=== PATIENT | female | born 1970 | race Caucasian/White ===

== ENCOUNTER 2018-06-26 18:18 | Emergency (ER) | payer SELFPAY ==
[~2018-06-26] VITALS: Ht 165.1 cm; Wt 76.0 kg
[2018-06-26] MEDS ORDERED: IBUPROFEN 800MG TABLET PO ONE (22:30)
[2018-06-26 22:50] VITALS: BP 148/79
== END 2018-06-26 22:51 | disposition home or self-care (01) ==
LOC: ER 18:18
DX: S39.012A Strain of muscle, fascia and tendon of lower back, initial encounter (principal); M54.2 Cervicalgia; M25.512 Pain in left shoulder; M25.511 Pain in right shoulder; R51 Headache; V49.88XA Car occupant (driver) (passenger) injured in other specified transport accidents, initial encounter; Y93.89 Activity, other specified; Y92.89 Other specified places as the place of occurrence of the external cause; Y99.8 Other external cause status
CPT/HCPCS: 99283